=== PATIENT | male | born 1985 ===

== ENCOUNTER → 2018-10-19 | Outpatient (CLI) | payer OTHER ==
[2018-10-19 18:55] LABS: CHOLESTEROL RISK RATIO 2.5
[2018-10-19 19:10] LABS: HIV 1/2 Antibodies Non-Reactive; HIV-1p24 Antigen Non-Reactive
== END ==
LOC: ZCOL.LAB 16:21
PROVIDERS: Family Medicine
DX: Z01.89 Encounter for other specified special examinations (principal); Z11.4 Encounter for screening for human immunodeficiency virus [HIV]; Z11.59 Encounter for screening for other viral diseases